=== PATIENT | female | born 1990 ===

== ENCOUNTER 2022-12-20 12:20 | Outpatient (CLI) | payer OTHER | END 2022-12-20 12:21 | disposition home or self-care (01) | LOC: ULT 12:20 | PROVIDERS: ATTEND Otolaryngology | DX: R13.10 Dysphagia, unspecified (principal); E04.1 Nontoxic single thyroid nodule; Z86.39 Personal history of other endocrine, nutritional and metabolic disease | CPT/HCPCS: 74220; 76536 ==